=== PATIENT | male | born 1960 | race Caucasian/White ===

== ENCOUNTER → 2017-08-24 | Outpatient (CLI) | payer BC ==
[~2017-08-24] MED LIST: ASPEC325 PO; HYDR-5688 PO; NALO1SPR; OXYSR10 PO
== END | disposition home or self-care (01) ==
LOC: C.CPL 15:23
PROVIDERS: ATTEND Orthopaedic Surgery Sports Medicine
DX: S92.002A Unspecified fracture of left calcaneus, initial encounter for closed fracture (principal); X58.XXXA Exposure to other specified factors, initial encounter